=== PATIENT | female | born 1975 | race Caucasian/White ===

== ENCOUNTER 2017-05-03 09:14 | Emergency (ER) | payer MEDICAID, SELFPAY ==
[2017-05-03 09:58] VITALS: BP 122/88; PULSE 87; RESP 20; TEMP 37.2; O2SAT 99; BMI 22.6
--- NOTE | 2017-05-03 10:34 | HMH.EDUTC ---
[facility] [place] Impression: Viral illness Disposition: Home, Self-Care Condition on Discharge: Good Instructions: DI for Viral Upper Respiratory Infection -- Adult Additional Instructions: * Monitor Temp. Tylenol and/or Ibuprofen as needed. ER if fever is no less than 101 despite alternating Tylenol and Ibuprofen * Encourage fluids, water, Gatorade, powerade, pedialyte if infant/toddler/or child * Warm salt water gargles for throat irritation *Warm fluids *Sore throat lozenges *Sleep elevated *humidifier or vaporizer Lots of rest Increase fluids, water, Gatorade, powerade *Your throat swab was sent to lab for culture. Those results area typically sent to your primary care physician. Be sure to follow up in 2-3 days if no improvement so they can review those results and treat if necessary If you dont have primary care I recommend you get one, but in the mean time you will have to return to a walk in clinic Follow up IMMEDIATELY for new or worsening of symptoms OR no noticeable improvement over the next 48-72 hours. 911 immediately for any life threatening symptoms such as chest pain or difficulty breathing Prescriptions: Ondansetron [Zofran 4mg ODT] 4 mg PO Q8H PRN #20 tab.rapdis PRN Reason: Vomiting Referrals: Eusebio Alan MD [Primary Care Provider] - Forms: Work/School Release Time of Disposition: 10:45 Medical Decision Making - Medical Records Medical records reviewed: Yes: I reviewed the patient's medical records. Vital Signs: 05/03/17 09:58 Temperature 98.9 F Temperature Source Temporal Artery Scan Pulse Rate [Right] 87 Respiratory Rate 20 Blood Pressure [Right Arm] 122/88 Blood Pressure Mean [Right Arm] 99 Blood Pressure Source [Right Arm] Automatic Cuff Blood Pressure Position [Right Arm] Sitting 02 Sat by Pulse Oximetry 99 Oxygen Delivery Method Room Air - Riky Inquiry Pt receiving controlled substance: No Riky was queried for this patient: No [facility] [place] - General Stated complaint: nausea headache sore throat Mode of Arrival: Ambulatory Source of Information: Patient Limitations: No Limitations Description of Symptoms (Recalled from Triage Doc. by RN): SORE THROAT, NAUSEA HEENT Symptoms (Recalled from RN notes): Yes Resp Symptoms (Recalled from RN notes): No Skin Symptoms (Recalled from RN notes): No MS Symptoms (Recalled from RN notes): No Functional Status (Recalled from RN notes): N - History of Present Illness Provider Complaint: Patient state that she began to have nausea on Wednesday State that the she began just not feeling well Body aches chills sore throat, and cough States that that she was worried that she may have the flu so she came in to get checked out - Related Data Previous Rx's Medication Instructions Recorded Ondansetron [Zofran 4mg ODT] 4 mg PO Q8H PRN #20 tab.rapdis 05/03/17 Allergies Allergy/AdvReac Type Severity Reaction Status Date / Time No Known Allergies Allergy Verified 05/03/17 10:01 - Worker's Comp Is this a Worker's Comp case?: No [facility] History I have reviewed the patient's past medical history: Yes - Social History Smoking Status: Smoker, status unknown Alcohol Intake: never - Psychiatric History Expresses thoughts of harming self/others: None Suicide Plan Description: No Plan ROS Obtained: Yes All systems reviewed & no additional complaints - Constitutional Constitutional: Reports body ache, Reports chills, Reports headache(s) - Gastrointestinal Gastrointestingal: Reports: nausea Physical Exam - General General appearance: alert, in no apparent distress - Expanded ENT Exam Comment: Throat red, irritated - Respiratory Respiratory exam: Present: normal lung sounds bilaterally. Absent: respiratory distress - Cardiovascular Cardiovascular exam: Present: regular rate, normal rhythm. Absent: JVD - Abdominal Exam Abdominal exam: Present: soft, normal bowel sounds. Absent: disten
--- NOTE | 2017-05-03 10:40 | ED_ITS ---
[facility] [place] Clinical Impression: Viral illness Disposition: Home, Self-Care Condition on Discharge: Good Instructions: DI for Viral Upper Respiratory Infection -- Adult Additional Instructions: * Monitor Temp. Tylenol and/or Ibuprofen as needed. ER if fever is no less than 101 despite alternating Tylenol and Ibuprofen * Encourage fluids, water, Gatorade, powerade, pedialyte if infant/toddler/or child * Warm salt water gargles for throat irritation *Warm fluids *Sore throat lozenges *Sleep elevated *humidifier or vaporizer Lots of rest Increase fluids, water, Gatorade, powerade *Your throat swab was sent to lab for culture. Those results area typically sent to your primary care physician. Be sure to follow up in 2-3 days if no improvement so they can review those results and treat if necessary If you don? t have primary care I recommend you get one, but in the mean time you will have to return to a walk in clinic Follow up IMMEDIATELY for new or worsening of symptoms OR no noticeable improvement over the next 48-72 hours. 911 immediately for any life threatening symptoms such as chest pain or difficulty breathing Prescriptions: Ondansetron [Zofran 4mg ODT] 4 mg PO Q8H PRN #20 tab.rapdis PRN Reason: Vomiting Referrals: Eusebio Alan MD [Primary Care Provider] - Forms: Work/School Release Time of Disposition: 10:45 Medical Decision Making - Medical Records Medical records reviewed: Yes: I reviewed the patient's medical records. Vital Signs: 05/03/17 09:58 Temperature 98.9 F Temperature Source Temporal Artery Scan Pulse Rate [Right] 87 Respiratory Rate 20 Blood Pressure [Right Arm] 122/88 Blood Pressure Mean [Right Arm] 99 Blood Pressure Source [Right Arm] Automatic Cuff Blood Pressure Position [Right Arm] Sitting 02 Sat by Pulse Oximetry 99 Oxygen Delivery Method Room Air - Riky Inquiry Pt receiving controlled substance: No Riky was queried for this patient: No [facility] [place] HPI - General Stated complaint: nausea headache sore throat Mode of Arrival: Ambulatory Source of Information: Patient Limitations: No Limitations Description of Symptoms (Recalled from Triage Doc. by RN): SORE THROAT, NAUSEA HEENT Symptoms (Recalled from RN notes): Yes Resp Symptoms (Recalled from RN notes): No Skin Symptoms (Recalled from RN notes): No MS Symptoms (Recalled from RN notes): No Functional Status (Recalled from RN notes): N - History of Present Illness Provider Complaint: Patient state that she began to have nausea on Wednesday State that the she began just not feeling well Body aches chills sore throat, and cough States that that she was worried that she may have the flu so she came in to get checked out - Related Data Previous Rx's Medication Instructions Recorded Ondansetron [Zofran 4mg ODT] 4 mg PO Q8H PRN #20 tab.rapdis 05/03/17 Allergies Allergy/AdvReac Type Severity Reaction Status Date / Time No Known Allergies Allergy Verified 05/03/17 10:01 - Worker's Comp Is this a Worker's Comp case?: No [facility] History I have reviewed the patient's past medical history: Yes - Social History Smoking Status: Smoker, status unknown Alcohol Intake: never - Psychiatric History Expresses thoughts of harming self/others: None Suicide Plan Description: No Plan ROS Obtained: Yes All systems reviewed & no additional compl
[2017-05-03 10:47] VITALS: BP 122/82; PULSE 82; RESP 16; TEMP 37.2
[2017-05-03 11:58] LABS: UTC Influenza A Antigen Negative (Negative); UTC Influenza B Antigen Negative (Negative); UTC Strep Screen (Rapid) Negative (Negative)
== END 2017-05-03 10:53 | disposition home or self-care (01) ==
PROVIDERS: Emergency Provider Nurse Practitioner; Family Provider Emergency Medicine; PCP Emergency Medicine
DX: B34.9 Viral infection, unspecified (principal); F17.210 Nicotine dependence, cigarettes, uncomplicated
CPT/HCPCS: 87804; 87880; 99202

== ENCOUNTER 2019-11-07 15:02 | Emergency (ER) | payer MEDICAID, SELFPAY ==
[2019-11-07 15:16] VITALS: BP 124/83; PULSE 73; RESP 14; TEMP 37.1; O2SAT 100; BMI 22.2
--- NOTE | 2019-11-07 15:27 | HMH.EDUTC ---
[facility] [place] Dis[place] Clinical Impression: UTI (urinary tract infection) Qualifiers: Urinary tract infection type: site unspecified Hematuria presence: with hematuria Qualified Code(s): N39.0 - Urinary tract infection, site not specified Disposition: Home, Self-Care Condition on Discharge: Good Instructions: Urinary Tract Infection, DI for Urinary Tract Infection (UTI) Additional Instructions: Avoid contact with the offending substance (poison briana). Don't start the oral steroids until tomorrow. Continue to give them benedryl for the itching if necessary. Follow up with your regular doctor. GO TO THE ER FOR ANY WORSENING SYMPTOMS OR CONCERNS The pyridium will make your urine turn orange, this is an expected side effect. It will stain your clothes if it comes into contact with them. Prescriptions: Ondansetron [Zofran 4mg ODT] 4 mg PO Q8HP PRN #10 tab.rapdis PRN Reason: Nausea Transmission Status: Received by [facility] #[id number] Sulfamethoxazole/Trimethoprim [Bactrim DS tablet] 1 each PO BID 7 Days #14 tab Transmission Status: Received by [facility] #[id number] Phenazopyridine HCl [Pyridium 200mg Tablet] 200 pow PO TID #6 tab Transmission Status: Received by [facility] #[id number] Referrals: Eusebio Alan MD [Primary Care Provider] - Time of Disposition: 15:46 Medical Decision Making - Medical Records Medical records reviewed: No: I reviewed the patient's medical records. - Riky Inquiry Pt receiving controlled substance: No Vital Signs: 11/07/19 15:16 Temperature 98.8 F Temperature Source Oral Pulse Rate [Right Brachial] 73 Respiratory Rate 14 Blood Pressure [Right Arm] 124/83 Blood Pressure Mean [Right Arm] 96 Blood Pressure Source [Right Arm] Automatic Cuff Blood Pressure Position [Right Arm] Sitting 02 Sat by Pulse Oximetry 100 Oxygen Delivery Method Room Air - Lab Data Lab results reviewed: Yes: I reviewed the patient's lab results. Lab Results 11/07/19 15:19: Urine Color Dark yellow, Urine Appearance Cloudy, Urine pH 6.5, Ur Specific Mckinney >= 1.030, Urine Protein 3+, Urine Glucose (UA) Negative, Urine Ketones Negative, Urine Blood 3+, Urine Nitrate Positive A, Urine Bilirubin Negative, Urine Urobilinogen 1, Ur Leukocyte Esterase Trace Orders (Tests/Meds): ORDERS Category Date Time Status Urine Culture Stat Micro 11/07/19 15:10 Ordered [facility] [place] HPI - General Stated complaint: back pain pain when urinating bloody urine Time Seen by Provider: 11/07/19 15:27 Mode of Arrival: Ambulatory Source of Information: Patient Limitations: No Limitations Description of Symptoms (Recalled from Triage Doc. by RN): PATIENT C/O POSSIBLE UTI THAT STARTED LAST NIGHT HEENT Symptoms (Recalled from RN notes): No Resp Symptoms (Recalled from RN notes): No Skin Symptoms (Recalled from RN notes): No MS Symptoms (Recalled from RN notes): No Functional Status (Recalled from RN notes): WNL - History of Present Illness Provider Complaint: She c/o dysuria and low back pain since yesteday evening. She denies any fever or chills. - Related Data Previous Rx's Medication Instructions Recorded Ondansetron [Zofran 4mg ODT] 4 mg PO Q8HP PRN #10 tab.rapdis 11/07/19 Phenazopyridine HCl [Pyridium 200 pow PO TID #6 tab 11/07/19 200mg Tablet] Sulfamethoxazole/Trimethoprim 1 each PO BID 7 Days #14 tab 11/07/19 [Bactrim DS tablet] Allergies Allergy/AdvReac Type Severity Reaction Status Date / Time No Known Allergies Allergy Verified 05/16/19 15:49 - Worker's Comp Is this a Worker's Comp case?: No [facility] History - Hepatitis A Screen Drug use history?: No High risk sexual behaviors?: No History of sexually transmitted infection?: No Currently employed?: No Childcare worker?: No Do you have indoor plumbing?: Yes Do you have electricity?: Yes Attestation statement:: This patient has been screened for Hepatitis A risk factors. I have
[2019-11-07 15:28] LABS: Apearance,Urine Cloudy (Clear); Bilirubin,Urine Negative (Negative); Blood, Urine 3+ (Negative); Color,Urine Dark Yellow (Yellow); Glucose,Urine (UA) Negative (Negative); Ketones,Urine Negative (Negative); PH,Urine 6.5 (5.0-8.5); Protein,Urine 3+ (Negative); Specific Gravity, Urine >= 1.030 (1.005-1.030); UTC Leukocyte Esterase,Urine Trace (Negative); Urobilinogen,Urine 1 EU/dl (0.2)
[2019-11-07 15:29] LABS: UTC Nitrate,Urine Positive (Negative)
[2019-11-07 15:58] VITALS: BP 124/83; PULSE 73; RESP 14; TEMP 37.1; O2SAT 100
== END 2019-11-07 16:00 | disposition home or self-care (01) ==
PROVIDERS: Emergency Provider Nurse Practitioner Family; PCP Emergency Medicine
DX: N30.00 Acute cystitis without hematuria (principal); F41.9 Anxiety disorder, unspecified; Z90.49 Acquired absence of other specified parts of digestive tract
CPT/HCPCS: 81003; 87086; 87088; 87186; 99201

== ENCOUNTER 2020-02-21 11:53 | Emergency (ER) | payer MEDICAID, SELFPAY ==
[2020-02-21 12:03] VITALS: BP 118/60; PULSE 90; RESP 18; O2SAT 99; BMI 20.9
--- NOTE | 2020-02-21 12:18 | HMH.EDUTC ---
[facility] [place] Clinical Impression: COVID-19 Disposition: Home, Self-Care Condition on Discharge: Good Instructions: Preventing the Spread of Coronavirus Discharge Instructions Additional Instructions: rink plenty of fluids. Take tylenol for pain or fever. Follow up with your regular doctor. GO TO THE ER FOR ANY WORSENING SYMPTOMS Referrals: Eusebio Alan MD [Primary Care Provider] - Time of Disposition: 12:19 Medical Decision Making - Medical Records Medical records reviewed: No: I reviewed the patient's medical records. - Riky Inquiry Pt receiving controlled substance: No Vital Signs: 02/21/20 12:03 02/21/20 12:45 Temperature 98.1 F Temperature Source Oral Pulse Rate 90 Pulse Rate [Radial] 90 Respiratory Rate 18 18 Blood Pressure 118/60 Blood Pressure [Right Arm] 118/60 Blood Pressure Mean [Right Arm] 79 Blood Pressure Source Automatic Cuff Blood Pressure Source [Right Arm] Automatic Cuff Blood Pressure Position Sitting Blood Pressure Position [Right Arm] Sitting 02 Sat by Pulse Oximetry 99 Oxygen Delivery Method Room Air Room Air Orders (Tests/Meds): ORDERS Category Date Time Status Covid-19 Nasal PCR Sendout Dylan Routine Lab 02/21/20 11:56 Received [facility] [place] - General Stated complaint: Covid re test Time Seen by Provider: 02/21/20 12:18 Mode of Arrival: Ambulatory Source of Information: Patient Limitations: No Limitations Description of Symptoms (Recalled from Triage Doc. by RN): covid retest HEENT Symptoms (Recalled from RN notes): No Resp Symptoms (Recalled from RN notes): No Skin Symptoms (Recalled from RN notes): No MS Symptoms (Recalled from RN notes): No Functional Status (Recalled from RN notes): wnl - History of Present Illness Provider Complaint: She needs to have a negative covid test so she can go back to work. She denies any symptoms for the past 5 days at least. - Related Data Previous Rx's Medication Instructions Recorded Ondansetron [Zofran 4mg ODT] 4 mg PO Q8HP PRN #10 tab.rapdis 11/07/19 Phenazopyridine HCl [Pyridium 200 pow PO TID #6 tab 11/07/19 200mg Tablet] Sulfamethoxazole/Trimethoprim 1 each PO BID 7 Days #14 tab 11/07/19 [Bactrim DS tablet] Allergies Allergy/AdvReac Type Severity Reaction Status Date / Time No Known Allergies Allergy Verified 05/16/19 15:49 - Worker's Comp Is this a Worker's Comp case?: No [facility] History - Hepatitis A Screen Drug use history?: No High risk sexual behaviors?: No History of sexually transmitted infection?: No Currently employed?: No Childcare worker?: No Do you have indoor plumbing?: Yes Do you have electricity?: Yes Attestation statement:: This patient has been screened for Hepatitis A risk factors. I have reviewed the patient's past medical history: Yes Medical History: Reports:: Anxiety Other Surgeries: Yes: Cholecystectomy, , Dilation and Curettage, Other Amputation: No Fractures: No Comment: GALLBLADDER REMOVED - Social History Smoking Status: Current every day smoker Tobacco Type: cigarettes # Packs/Day (cigarettes): 1 Alcohol Intake: never Substance Use Type: denies use Occupational Status: employed Housing: apartment Household Members: children - Psychiatric History Pschychiatric History:: Reports:: Anxiety Family Hx:: Cancer, Diabetes, Heart Attack, Stroke, Hypertension ROS Obtained: Yes All systems reviewed & no additional complaints - Constitutional Constitutional: Reports system reviewed and no additional complaints, except as docu - Eyes Eyes: Reports system reviewed and no additional complaints, except as docu - ENT Ears, Nose, Mouth, and Throat: Reports system reviewed and no additional complaints, except as docu - Cardiovascular Cardiovascular: Reports system reviewed and no additional complaints, except as docu - Respiratory Respiratory: Yes system reviewed and no additional complaints, except as
[2020-02-21 12:45] VITALS: BP 118/60; PULSE 90; RESP 18; TEMP 36.7; O2SAT 99
[2020-02-22 12:32] LABS: Covid-19 Nasal PCR Sendout Lex Not Detected
== END 2020-02-21 12:46 | disposition home or self-care (01) ==
PROVIDERS: Emergency Provider Nurse Practitioner Family; PCP Emergency Medicine
DX: Z20.828 Contact with and (suspected) exposure to other viral communicable diseases (principal)
CPT/HCPCS: 99201; U0004

== ENCOUNTER 2022-10-07 14:49 | Emergency (ER) | payer MEDICAID, SELFPAY ==
[2022-10-07 15:00] VITALS: BP 137/83; PULSE 81; RESP 16; TEMP 36.7; O2SAT 97; BMI 24.2
--- NOTE | 2022-10-07 15:25 | PC.NURSE ---
rounded on pt nothing needed at this time
--- NOTE | 2022-10-07 15:34 | HMH.EDGENADL ---
Discharge Plan Disposition Patient Disposition: Home, Self-Care Prescriptions Prescriptions: New clobetasol 0.05 % cream 1 applic topical BID 7 Days Qty: 30 0RF No Action amoxicillin 500 mg capsule 500 mg PO Q12H 10 Days Qty: 20 0RF Referrals Follow up/Referrals: Eusebio Alan MD [Primary Care Provider] - See instructions Activity Restrictions/Add. Instructions Additional Instructions/Restrictions: If you have any worsening of your condition or any other concerning signs or symptoms, return to the emergency department or your primary care doctor for further evaluation. Clinical Impressions Clinical Impression: Allergic dermatitis due to poison briana Instructions Patient Instructions: DI for Skin Abscess Discharge ED Provider: Roberto Burgos General Adult HPI General Chief complaint: Skin/Abscess/Foreign Body Stated complaint: possible posion briana Time Seen by Provider: 10/07/22 15:00 Mode of Arrival: Ambulatory Source of Information: Patient Limitations: No Limitations Description of Symptoms (Recalled from ER Triage Doc. by RN): pt presents with possible poision briana rash on right side of neck, and onto her right arm and hand. History of Present Illness HPI narrative: Is a 46-year-old female with no relevant medical history presenting with rash. Patient states that she was in her flower beds pulling weeds around poison briana a couple days prior to arrival. States that she developed rash on the right side of her neck and her right hand. Since that time, has gotten worse. Tried calamine lotion as well as Benadryl cream, but neither of these have worked in terms of itching and burning symptoms. Denies difficulty breathing, pain of range of motion of neck, fevers or chills, any systemic signs or symptoms, or any other concerning symptoms. Related Data Previous Rx's Medication Instructions Recorded amoxicillin 500 mg capsule 500 mg PO Q12H otitis media 10 10/09/20 days #20 caps clobetasol 0.05 % topical cream 1 applic topical BID 1 week #30 10/07/22 grams Allergies Allergy/AdvReac Type Severity Reaction Status Date / Time No Known Allergies Allergy Verified 10/09/20 18:20 [facility] Disclaimer: The information contained in this section may have been updated after the patient was seen, as this information can be updated by other users. Social History Smoking Status: Never smoker second hand exposure: Yes alcohol intake: never substance use type: denies use current occupational status: employed Travel in the last 8 weeks: None household members: children housing: apartment ROS Obtained: Yes All systems reviewed & no additional complaints except as documented Physical Exam General General appearance: alert, in no apparent distress and other ( ) Head Head exam: atraumatic and normocephalic Eye Eye exam: Present normal appearance, PERRL and EOMI ENT ENT exam: Present mucous membranes moist and other (Erythematous, blanching rash on right side of neck without evidence of tenderness, induration, fluctuance, or any other concerning findings.) Neck Neck exam: Present normal inspection, full ROM and trachea midline Respiratory Respiratory exam: Absent respiratory distress, wheezes, stridor, accessory muscle use or prolonged expiratory phase Cardiovascular Cardiovascular exam: Present regular rate and normal rhythm Extremities Exam Extremities exam: Present other (body erythematous rash on right upper extremity near her wrist and distal forearm without drainage. Nontender, blanching, no fluctuance, signs of underlying infection.); Absent edema Neurological Exam Neurological exam: Present alert, oriented X3, CN II-XII intact and normal gait; Absent motor sensory deficit Skin Skin exam: Present warm, dry and rash; Absent diaphoresis or erythema Medical Decision Making Medical Records Medical records reviewed: Yes I reviewed the patient's medical records. Riky Inquiry
[2022-10-07 16:00] VITALS: BP 133/77; PULSE 80; RESP 20; TEMP 36.7; O2SAT 97
== END 2022-10-07 16:01 | disposition home or self-care (01) ==
PROVIDERS: Emergency Provider Emergency Medicine; PCP Emergency Medicine
DX: L23.7 Allergic contact dermatitis due to plants, except food (principal)
CPT/HCPCS: 99284

== ENCOUNTER 2023-05-30 08:33 | Emergency (ER) | payer SELFPAY ==
[2023-05-30 08:34] VITALS: BP 167/96; PULSE 106; RESP 19; TEMP 36.7; O2SAT 100; BMI 21.9
--- NOTE | 2023-05-30 08:52 | ED_ITS ---
Discharge Plan Disposition Patient Disposition: Home, Self-Care Condition: Good Prescriptions Prescriptions: New naproxen 500 mg tablet 500 mg PO BID Qty: 20 0RF methocarbamol 500 mg tablet 500 mg PO Q8H PRN (Reason: pain) Qty: 20 0RF Referrals Follow up/Referrals: Kedar Call DO [Primary Care Provider] - See instructions Activity Restrictions/Add. Instructions Additional Instructions/Restrictions: You were evaluated in the emergency department today. Please mushroom picker your prescriptions and take them as needed for pain. Follow-up closely with your primary care provider over the next week. Return to the emergency department for new or worsening symptoms. Clinical Impressions Clinical Impression: Bulging lumbar disc Low back pain Qualifiers: Chronicity: acute Back pain laterality: midline Stand Alone Forms Stand Alone Forms: Work/School Release Instructions Patient Instructions: DI for Low Back Pain Discharge ED Provider: Ching Mccormick General Adult HPI General Chief complaint: Back Pain/Injury Stated complaint: back pain, no accident Time Seen by Provider: 05/30/23 08:40 History of Present Illness HPI narrative: This patient is a 47-year-old female with history of scoliosis presenting with concern for atraumatic low back pain that is midline. She states that since Wednesday, she has had severe midline lower back pain as well as numbness/tingling in her left foot. She denies any known injuries, but notes that she first noticed it when she got out of bed Wednesday morning. No saddle anesthesia, incontinence, urinary retention, fevers, or other concerns. She has taken Tylenol at home with minimal relief. This morning, the pain was much worse, prompting her to come to the ED. She cannot member when the last time she had imaging of her spine was. Related Data Previous Rx's Medication Instructions Recorded methocarbamol 500 mg tablet 500 mg PO Q8H PRN pain #20 tabs 05/30/23 naproxen 500 mg tablet 500 mg PO BID #20 tabs 05/30/23 Allergies Allergy/AdvReac Type Severity Reaction Status Date / Time No Known Allergies Allergy Verified 10/09/20 18:20 [facility] Disclaimer: The information contained in this section may have been updated after the patient was seen, as this information can be updated by other users. Social History Smoking Status: Never smoker second hand exposure: Yes alcohol intake: never substance use type: denies use current occupational status: employed Travel in the last 8 weeks: None household members: children housing: apartment ROS Obtained: Yes All systems reviewed & no additional complaints except as documented Physical Exam General General appearance: alert and in no apparent distress Comment: Uncomfortable appearing Head Head exam: atraumatic and normocephalic Eye Eye exam: Present normal appearance, PERRL and EOMI ENT ENT exam: Present normal exam, normal oropharynx, mucous membranes moist and normal external ear exam Neck Neck exam: Present normal inspection, full ROM and trachea midline; Absent tenderness Chest Chest inspection: Present normal inspection and symmetric chest wall rise; Absent tenderness Respiratory Respiratory exam: Present normal lung sounds bilaterally; Absent respiratory distress, wheezes, stridor or accessory muscle use Cardiovascular Cardiovascular exam: Present regular rate and normal rhythm Abdominal Exam Abdominal exam: Present soft; Absent distention, tenderness, guarding, rebound or rigidity Extremities Exam Extremities exam: Present normal inspection, full ROM and normal capillary refill; Absent tenderness or edema Back Exam Back exam: Present tenderness (Midline lower lumbar spine) and vertebral tenderness (Midline lower lumbar spine); Absent full ROM (Limited range of motion of the lower back secondary to pain) Neurological Exam Neurological exam: Present alert, oriented X3, CN II-XII intact and normal gait; Absent motor sensory deficit Psychiatric Psychiatric exam: Present normal affect and normal mood Skin Skin exam: Present warm and dry Medical Decision Making Medical Records Medical records reviewed: Yes I reviewed the patient's medical records. Riky Inquiry Pt receiving controlled substance: No Vital Signs: 05/30/23 08:34 05/30/23 08:54 05/30/23 10:16 Temperature 98.1 F 98.4 F Temperature Source Oral Oral Pulse Rate 98 H 86 Pulse Rate [Right] 106 H Respiratory Rate 19 18 Blood Pressure 127/87 141/88 H Blood Pressure [Right Arm] 167/96 H Blood Pressure Mean [Right Arm] 119 Blood Pressure Source [Right Arm] Automatic Cuff 02 Sat by Pulse Oximetry 100 99 Oxygen Delivery Method Room Air Room Air Lab Data Lab results reviewed: Yes I reviewed the patient's lab results. Orders (Tests/Meds): ED MEDICATIONS Discontinued Medications Generic Name Dose Route Start Last Admin Trade Name Freq PRN Reason Stop Dose Admin Ketorolac Tromethamine 30 mg 05/30/23 09:00 05/30/23 09:07 Ketorolac 30mg/Ml Vial IM 05/30/23 09:01 30 mg ONCE ONE Administration Lidocaine 1 each 05/30/23 09:00 05/30/23 09:06 Lidocaine 5% Transdermal Patch TP 05/30/23 09:01 1 each ONCE ONE Administration ORDERS Category Date Time Status CT lumbar spine wo con Stat Cat Scan 05/30/23 08:57 Completed Medical Decision Narrative: In summary, this patient is a 47-year-old female presenting to the Emergency Department for evaluation of atraumatic low back pain. Differential diagnoses considered include but are not limited to musculoskeletal strain/sprain, compression fracture, disc herniation, lumbar radiculopathy. Ruling out the most morbid conditions drove assessment. On exam, the patient is uncomfortable appearing with midline lumbosacral tende rness to palpation. She has no saddle anesthesia, incontinence, retention, or other emergent findings that would suggest spinal cord compression. She also has had no fevers or history of drug use. She is grossly neurologically intact on exam, but uncomfortable appearing. Workup included CT of the lumbar spine without IV contrast. She was given IM Toradol and a topical Lidoderm patch for symptomatic improvement. She declines oral medications at this time because she has not eaten this morning. I independently interpreted CT scan prior to the radiologist read and noted no obvious acute fracture. Radiology notes concern for multiple bulging disks. Please see their read for final interpretation. On reassessment, the patient has not had significant improvement in her pain, but she is ambulatory. I notified her of the results of the scan and feel that her symptoms are likely related to bulging/herniated disc. I advised that I do feel she safe for discharge home with follow-up outpatient for further evaluation and management by her primary care provider. She was provided with prescriptions for naproxen and Robaxin for symptomatic improvement. At this time, patient seen to be appropriate for discharge. Strict return precautions were given, and the patient was discharged in stable condition. Critical Care Critical Care Time Critical Care Time: No
[2023-05-30 08:54] VITALS: BP 127/87; PULSE 98; O2SAT 99
--- NOTE | 2023-05-30 08:57 | CT_ITS ---
PROCEDURE INFORMATION: Exam: CT Lumbar Spine Without Contrast Exam date and time: 05/30/2023 9:11 AM Age: 47 years old Clinical indication: Low back pain; Additional info: Low back pain (midline) x 3 days TECHNIQUE: Imaging protocol: Computed tomography of the lumbar spine without contrast. Radiation optimization: All CT scans at this facility use at least one of these dose optimization techniques: automated exposure control; mA and/or kV adjustment per patient size (includes targeted exams where dose is matched to clinical indication); or iterative reconstruction. COMPARISON: No relevant prior studies available. FINDINGS: Bones/joints: No acute fracture. Normal alignment. L1-L2: No significant disc bulge or herniation. No severe spinal canal stenosis. No significant neural foraminal narrowing. L2-L3: There is mild diffuse disc bulging without significant spinal canal or neural foraminal stenosis. L3-L4: There is mild central disc bulging without significant spinal canal or neural foraminal stenosis. L4-L5: There is mild diffuse disc bulging without significant spinal canal stenosis. There is mild bilateral neural foraminal stenosis secondary to foraminal disc bulging and facet hypertrophy. L5-S1: There is mild diffuse disc bulging without significant spinal canal or neural foraminal stenosis. Kidneys and ureters: There is a nonobstructing 4 mm right kidney stone identified. Soft tissues: Unremarkable. IMPRESSION: 1. Degenerative changes as described. Please see above for specific findings at each level. 2. Nonobstructing 4 mm right kidney stone.
[2023-05-30] MEDS: LIDOCAINE 5% TRANSDERMAL PATCH 1 EACH TP (09:06)
[2023-05-30] MEDS: KETOROLAC 30MG/ML VIAL 30 MG IM (09:07)
--- NOTE | 2023-05-30 09:14 | PC.NURSE ---
pt to radiology
[2023-05-30 10:16] VITALS: BP 141/88; PULSE 86; RESP 18; TEMP 36.9; O2SAT 96
== END 2023-05-30 10:17 | disposition home or self-care (01) ==
PROVIDERS: Emergency Provider Emergency Medicine; PCP Internal Medicine
DX: M51.26 Other intervertebral disc displacement, lumbar region (principal); M41.9 Scoliosis, unspecified
CPT/HCPCS: 72131; 96372; 99284

== ENCOUNTER 2023-10-29 13:59 | Outpatient (CLI) | payer SELFPAY ==
[2023-10-29 14:17] VITALS: BMI 23.5
[2023-10-29] MEDS: TUBERCULIN 5 UNITS/0.1ML 1ML VIAL ID (14:18)
== END 2023-10-29 23:59 | disposition home or self-care (01) ==
PROVIDERS: PCP Internal Medicine; Visit Provider Nurse Practitioner
DX: Z11.1 Encounter for screening for respiratory tuberculosis (principal)
CPT/HCPCS: 86580